=== PATIENT | male | born 1980 | race African-American/Black ===

== ENCOUNTER 2023-05-05 16:48 | Emergency (ER) | payer OTHER, SELFPAY ==
--- NOTE | 2023-05-05 17:08 | PC.NURSE ---
security reports that patient left a few minutes ago. pt was brought by [facility] and left promptly after being brought to .
[2023-05-05 17:29] VITALS: BP 120/90; PULSE 86; O2SAT 95
== END 2023-05-05 17:44 | disposition left against medical advice (07) ==
PROVIDERS: Emergency Provider Emergency Medicine
DX: R42 Dizziness and giddiness (principal)